=== PATIENT | male | born 1985 | race Caucasian/White ===

== ENCOUNTER 2024-04-01 20:00 | Emergency (ER) | payer SELFPAY ==
[2024-04-01 20:12] VITALS: BP 139/76; PULSE 73; RESP 16; TEMP 36.9; O2SAT 99; BMI 29.5
--- NOTE | 2024-04-01 20:50 | ED_ITS ---
HPI - Extremity Problem General Chief complaint: Extremity Problem,Nontraumatic Stated complaint: big toe left foot painfull Time Seen by Provider: 04/01/24 20:39 Source: patient Mode of arrival: Ambulatory History of Present Illness HPI Narrative: 39-year-old otherwise healthy male who is here for evaluation of discomfort to his left great toe/inside of his left foot. He states the symptoms started about 48 hours ago. No specific trauma. Pain is located at the base of his great toe on the left. It is red. Painful to touch. No fevers. No trauma. He has been trying [id number] medications without much relief. No new exposures. No history of gout. No other joint tenderness. Related Data Home Medications Medication Instructions Recorded Confirmed venlafaxine 225 mg tablet,extended 225 mg PO DAILY 06/30/23 06/30/23 release 24 hr Previous Rx's Medication Instructions Recorded hydrocortisone 1 %-pramoxine 1 % 1 applic IL QID PRN hemorrhoids 06/30/23 rectal foam (Proctofoam HC) #10 grams colchicine 0.6 mg tablet 0.6 mg PO BID #20 tabs 04/01/24 Allergies Allergy/AdvReac Type Severity Reaction Status Date / Time albuterol Allergy Severe Anaphylaxis Verified 06/30/23 12:27 Review of Systems Constitutional Constitutional: Reports system reviewed and no additional complaints, except as documented Musculoskeletal Musculoskeletal: Reports system reviewed and no additional complaints, except as documented Integumentary/Breasts Skin/Breast: Reports system reviewed and no additional complaints, except as documented Neurologic Neurologic: Reports system reviewed and no additional complaints, except as documented Exam Initial Vital Signs Initial Vital Signs: Vital Signs Temperature 98.5 F 04/01/24 20:12 Pulse Rate 73 04/01/24 20:12 Respiratory Rate 16 04/01/24 20:12 Blood Pressure 139/76 04/01/24 20:12 Pulse Oximetry 99 04/01/24 20:12 Oxygen Delivery Method Room Air 04/01/24 20:12 Skin Other: Mild redness to the medial aspect of the MTP joint of the left great toe. No pustules. No vesicles. Neuro Sensory Exam: no sensory deficits noted Extrem Other: Discomfort to palpation of the MTP joint of the left great toe Course Orders Ordered: ED Orders 04/01/24 20:50 XR toe LT min 2V Stat 04/01/24 21:16 Basic Metabolic Panel Stat C-Reactive Protein Quant Stat Complete Blood Count AUTO DIFF Stat Erythrocyte Sedimentation Rate Stat Uric Acid Stat Discontinued Medications Colchicine (Colchicine 0.6 Mg Tablet) 1.2 mg PO NOW ONE Stop: 04/01/24 22:40 Last Admin: 04/01/24 22:53 Dose: 1.2 mg Documented By: [place] Vital Signs Vital signs: Vital Signs - 8 hr 04/01/24 20:12 04/01/24 22:35 04/01/24 22:57 Temperature 98.5 F 97.6 F Pulse Rate 73 66 70 Respiratory Rate 16 16 16 Blood Pressure 139/76 115/65 118/70 Pulse Oximetry 99 96 98 Oxygen Delivery Method Room Air Room Air Room Air MDM - Extremity (Nontraumatic) Lab Data 04/01/24 21:16 04/01/24 21:16 Labs: Lab Results 04/01/24 Range/Units 21:16 WBC 9.9 (4.5-11.0) X10^3/uL RBC 4.13 L (4.5-5.9) X10^6/uL Hgb 13.2 L (13.5-17.5) g/dL Hct 37.7 L (41-53) % MCV 91.2 (80-100) fL MCH 31.8 (26-34) PG MCHC 34.9 (30-36) % RDW 12.6 (11.6-14.8) % Plt Count 274 (150-400) X10^3/uL Neut % (Auto) 58.5 (50-75) % Lymph % (Auto) 33.2 (25-40) % [place] % (Auto) 7.3 (3-14) % Eos % (Auto) 0.6 L (2-4) % Baso % (Auto) 0.4 (0-2) % Neut # (Auto) 5800 (5325-2432) /uL Lymph # (Auto) 3300 (7265-8837) /uL [place] # (Auto) 700 (0-900) /uL Eos # (Auto) 100 (0-450) /uL Baso # (Auto) 0 (0-100) /uL ESR 7 (0-15) MM/HR Sodium 140 (137-145) mmol/L Potassium 3.6 (3.4-5.1) mmol/L Chloride 109 H (98-107) mmol/L Carbon Dioxide 24 (22-32) mmol/L BUN 10 (9-20) mg/dL Creatinine 0.80 (0.66-1.25) mg/dL Estimated GFR > 60 (>60) mL/min BUN/Creatinine Ratio 12.5 (6-22) Glucose 112 H (70-100) mg/dL Uric Acid 8.9 H (3.5-8.5) mg/dL Calcium 8.5 (8.4-10.2) mg/dL C-Reactive Protein < 0.5 (<1.0) mg/dL Imaging Data Extremity x-ray #1: Radiologist's Impression: PROCEDURE: XR TOE LT MIN 2V INDICATIONS: MTP great toe pain TECHNIQUE: AP view of the foot in two views of the great toe choir. COMPARISON: None. FINDINGS: Bones: No acute fractures or dislocations. No suspicious bony lesions. Soft tissues: No suspicious soft tissue densities. Possible mild soft tissue edema at the medial forefoot. IMPRESSION: No acute osseous abnormality. If there is continued clinical concern or persistent symptoms, repeat radiographs or cross-sectional imaging (e.g. CT, MRI) may be helpful for further evaluation. [facility] Narrative Medical decision making narrative: He has redness to the dorsum/medial aspect of the left foot over the MTP joint. It is tender to palpation but it is not warm. He does have tenderness with movement of the MTP joint. The x-ray shows no signs of fracture. He does not have leukocytosis. Has not afebrile. There was no signs of any ascending infection. We discussed the possibility that this is either an inflammatory response such as gout or an infection. His uric acid is slightly elevated. There does not appear to be any fluctuant areas concerning for an abscess. I feel that a arthrocentesis would be unhelpful in the situation. His physical exam is most consistent with gout. We did discuss this. The plan will be to put him on colchicine. He has naproxen at home that he can take. He understands that if his symptoms worsen or he develops fevers or redness starts to move up his arms that he should return to the emergency department and at this point this would be more consistent with an infection. Patient expressed understanding and agreement with this plan. Discharge Plan Departure Patient Disposition: Home Clinical Impression: Gout Instructions: Gout (Alternative Therapy), Gout Activity Restrictions/Additional Instructions: Take the colchicine 2 times a day until your symptoms have resolved. You can also take naproxen to help with the discomfort as well. If you start to develop fevers or worsening pain or worsening redness placed return to the emergency department for further evaluation. Prescriptions: New colchicine 0.6 mg tablet 0.6 mg PO BID Qty: 20 0RF Rx Instructions: Take until symptoms have resolved No Action venlafaxine 225 mg tablet extended release 24hr 225 mg PO DAILY Proctofoam HC 1-1 % foam 1 applic [place] QID PRN (Reason: hemorrhoids) Qty: 10 0RF Referrals: Miscellaneous,Doctor, MD [Primary Care Provider] - Stand Alone Forms: Patient Portal/API
[2024-04-01 21:26] LABS: Add Manual Diff / Slide Review NO; Basophils Absolute Auto 0 /uL (0-100); Basophils Percent Auto 0.4 % (0-2); Eosinophils Absolute Auto 100 /uL (0-450); Eosinophils Percent Auto 0.6 % (2-4); Hematocrit 37.7 % (41-53); Hemoglobin 13.2 g/dL (13.5-17.5); Lymphocytes Absolute Auto 3300 /uL (1100-4500); Lymphocytes Percent Auto 33.2 % (25-40); Mean Corpuscular HGB Conc 34.9 % (30-36); Mean Corpuscular Hemoglobin 31.8 PG (26-34); Mean Corpuscular Volume 91.2 fL (80-100); Monocytes Absolute Auto 700 /uL (0-900); Monocytes Percent Auto 7.3 % (3-14); Neutrophils Absolute Auto 5800 /uL (1500-7000); Neutrophils Percent Auto 58.5 % (50-75); Platelet Count 274 X10^3/uL (150-400); Red Blood Cell Count 4.13 X10^6/uL (4.5-5.9); Red Cell Distribution Width 12.6 % (11.6-14.8); White Blood Cell Count 9.9 X10^3/uL (4.5-11.0)
[2024-04-01 21:52] LABS: Uric Acid 8.9 mg/dL (3.5-8.5)
[2024-04-01 21:55] LABS: BUN Creatinine Ratio 12.5 (6-22); Blood Urea Nitrogen 10 mg/dL (9-20); C-Reactive Protein Quant < 0.5 mg/dL (<1.0); Calcium 8.5 mg/dL (8.4-10.2); Carbon Dioxide 24 mmol/L (22-32); Chloride 109 mmol/L (98-107); Estimated Glomerular Filt Rate > 60 mL/min (>60); Glucose 112 mg/dL (70-100); HEMOLYSIS < 15 (0-50); Potassium 3.6 mmol/L (3.4-5.1); Sodium 140 mmol/L (137-145)
[2024-04-01 22:05] LABS: Erythrocyte Sedimentation Rate 7 MM/HR (0-15)
[2024-04-01 22:35] VITALS: BP 115/65; PULSE 66; RESP 16; O2SAT 96
[2024-04-01] MEDS: COLCHICINE 0.6 MG TABLET 1.2 MG PO (22:53)
[2024-04-01 22:57] VITALS: BP 118/70; PULSE 70; RESP 16; TEMP 36.4; O2SAT 98
== END 2024-04-01 22:58 | disposition home or self-care (01) ==
PROVIDERS: Emergency Provider Emergency Medicine
DX: M10.9 Gout, unspecified (principal)
CPT/HCPCS: 36415; 73660; 80048; 84550; 85025; 85651; 86140; 99283